=== PATIENT | female | born 1955 | race Caucasian/White ===

== ENCOUNTER 2024-10-19 07:02 | Day surgery (SDC) | payer MEDICARE ==
[~2024-10-19 07:02] MED LIST: Sodium Chloride 0.9% 10 ML Syringe FLUSH PRN
[2024-10-19] MEDS: Lactated Ringers 1,000 ML IV SCH (07:09)
[2024-10-19] MEDS ORDERED: Midazolam 1 MG/ML 2 ML SDV ONE (07:59)
[2024-10-19] MEDS ORDERED: Propofol 200 MG/20 ML SDV ONE (07:59)
== END 2024-10-19 10:16 | disposition home or self-care (01) ==
LOC: KA.SDS 07:02
PROVIDERS: ATTEND Family Medicine
DX: D50.9 Iron deficiency anemia, unspecified (principal); K29.50 Unspecified chronic gastritis without bleeding; K44.9 Diaphragmatic hernia without obstruction or gangrene; K62.3 Rectal prolapse; K52.9 Noninfective gastroenteritis and colitis, unspecified; I10 Essential (primary) hypertension
CPT/HCPCS: 00813; 88305; J2250; J2704; J7120